=== PATIENT | male | born 1945 | race Caucasian/White ===

== ENCOUNTER → 2017-06-06 | Outpatient (CLI) | payer MEDICARE, OTHER ==
[~2017-06-06] MED LIST: ASPIRIN81 M1 PO; ASPIRIN81 M2 PO; ATENOLOL25 MG PO; CLARITIN D PO; CLARITIN10 MG PO; DAPSONE100 MG PO; LORTAB 5/500 TA1 TA1 PO; MICARDIS HCT 401 TAB PO; MICARDIS HCT PO; MULTIVITAMIN1 UDCAP PO; NAPROSYN500 MG PO; NEXIUM PO; NITROGLYGERIN0.4 MG SL; NITROLINGUAL12 G1 SL; PLAVIX PO; TENORMIN25 MG PO; VICODIN PO; VYTORIN 10-40 M1 TAB PO; VYTORIN 10-40 T1 TAB PO; VYTORIN PO; ZYRTEC PO
[2017-06-06 16:45] LABS: BASOPHIL# 0.1 X10e3 (0-0.3); BASOPHIL% 0.8 % (0-2.5); EOSINOPHIL# 0.2 X10e3 (0-0.7); EOSINOPHIL% 3.4 % (0.0-7.0); HEMATOCRIT 37.9 % (38.0-50.0); HEMOGLOBIN 12.7 gm/dL (13.0-16.0); LYMPHOCYTE# 1.8 X10e3 (1.0-3.5); LYMPHOCYTE% 27.3 % (17.0-45.0); MEAN CELL VOLUME 96.1 FL (83-96); MEAN CORPUSCULAR HEMOGLOBIN 32.1 PG (28-34); MEAN CORPUSCULAR HGB CONC 33.4 g/dL (30-36); MEAN PLATELET VOLUME 7.2 FL (6.5-11.5); MONOCYTE# 0.5 X10e3 (0-1.0); NEUTROPHIL# 3.9 X10e3 (1.5-7.1); NEUTROPHIL% 60.5 % (40-75); PLATELET COUNT 213 X10e3 (140-420); RED BLOOD COUNT 3.94 X10e (3.90-5.60); RED CELL DISTRIBUTION WIDTH 14.3 % (11.0-15.5); WHITE BLOOD COUNT 6.5 X10e3 (4.0-10.5)
[2017-06-06 16:48] LABS: DIFF IND NO
== END | disposition home or self-care (01) ==
LOC: CLAB 16:03
PROVIDERS: Dermatology Procedural Dermatology
DX: L13.0 Dermatitis herpetiformis (principal); Z79.899 Other long term (current) drug therapy
CPT/HCPCS: 36415; 80048; 85025; 85027; 85610; 85730; 93005